=== PATIENT | female | born 1995 | race Caucasian/White ===

== ENCOUNTER 2017-12-09 20:41 | Emergency (ER) | payer MEDICAID, SELFPAY ==
--- NOTE | 2017-12-09 21:58 | RAD ---
FOUR VIEWS OF THE LEFT KNEE: 12/09/17 INDICATION: Fall with left knee pain. FINDINGS: There is mild joint capsular distention. No acute fracture or subluxation is grossly evident. IMPRESSION: Mild joint capsular distention. No acute osseous abnormality. POS: [facility]
== END 2017-12-09 22:02 | disposition home or self-care (01) ==
LOC: SCSER 20:41
DX: S80.02XA Contusion of left knee, initial encounter (principal); Z87.442 Personal history of urinary calculi; W18.11XA Fall from or off toilet without subsequent striking against object, initial encounter

== ENCOUNTER 2018-10-09 18:54 | Emergency (ER) | payer SELFPAY ==
[2018-10-09] MEDS ORDERED: Acetaminophen 325 MG TAB ONE (20:42)
== END 2018-10-09 21:41 | disposition home or self-care (01) ==
LOC: ERS 18:54
DX: J10.1 Influenza due to other identified influenza virus with other respiratory manifestations (principal)
CPT/HCPCS: 87081; 87430; 87804; 99283

== ENCOUNTER 2020-08-16 21:08 | Emergency (ER) | payer SELFPAY ==
[2020-08-16 22:18] LABS: Bacteria/HPF 4+ HPF (None Seen); Bilirubin Negative (Negative); Blood, Urine 2+ (Negative); Clarity Clear (Clear); Glucose, Urine (Dipstick) Normal (Negative); Ketone, Urine Negative (Negative); Leukocyte 250 Leu/uL (Negative); Nitrite 1+ (Negative); Pregnancy Test - Urine (BHCG) Negative (Negative); Pregu Control Background? CLEAR/WHITE (CLR/WHITE); Pregu Control Bar Appear? YES (CONTROL BAR); Protein, Urine (Dipstick) 20 mg/dL (Neg-Trace); RBC/HPF 21-50 HPF (0-3); Specific Gravity 1.029 (1.002-1.036); Specific Gravity, Urine 1.029 (1.002-1.036); Urobilinogen Normal mg/dL (Less than 2); WBC/HPF 21-50 HPF (0-3); pH, Urine 5.5 (5.0-9.0)
== END 2020-08-16 22:34 | disposition home or self-care (01) ==
LOC: ERS 21:08
DX: N39.0 Urinary tract infection, site not specified (principal); N89.8 Other specified noninflammatory disorders of vagina
CPT/HCPCS: 81003; 81015; 81025; 87077; 87086; 87186; 87480; 87491; 87510; 87591; 87660; 99283

== ENCOUNTER 2020-08-19 02:15 | Emergency (ER) | payer SELFPAY ==
[2020-08-19 03:14] LABS: Bacteria/HPF 1+ HPF (None Seen); Bilirubin Negative (Negative); Blood, Urine 2+ (Negative); Clarity Turbid (Clear); Glucose, Urine (Dipstick) Normal (Negative); Ketone, Urine Trace mg/dL (Negative); Leukocyte 500 Leu/uL (Negative); Nitrite Negative (Negative); Protein, Urine (Dipstick) 30 mg/dL (Neg-Trace); RBC/HPF Greater than 50 HPF (0-3); Specific Gravity, Urine 1.023 (1.002-1.036); Squamous Epithelial 21-50 HPF (0-3); Urobilinogen Normal mg/dL (Less than 2); WBC/HPF Greater than 50 HPF (0-3)
== END 2020-08-19 04:40 | disposition home or self-care (01) ==
LOC: ERS 02:15
DX: A60.04 Herpesviral vulvovaginitis (principal); B37.3 Candidiasis of vulva and vagina; A59.01 Trichomonal vulvovaginitis; N39.0 Urinary tract infection, site not specified; Z79.899 Other long term (current) drug therapy
CPT/HCPCS: 81003; 81015; 99283

== ENCOUNTER 2020-08-20 13:20 | Emergency (ER) | payer SELFPAY | END 2020-08-20 14:37 | disposition home or self-care (01) | LOC: ERS 13:20 | DX: B00.82 Herpes simplex myelitis (principal) | CPT/HCPCS: 87252; 99283 ==

== ENCOUNTER 2020-09-07 11:46 | Emergency (ER) | payer SELFPAY ==
[2020-09-07] MEDS ORDERED: Ondansetron PF 4 MG/2 ML Vial ONE (12:17)
[2020-09-07] MEDS ORDERED: Ketorolac Tromethamine 30 MG/ML VIAL ONE (12:17)
[2020-09-07 12:45] LABS: #Eosinphils 0.1 thou/uL (0.0-0.7); #Lymphocytes 1.7 thou/uL (1.20-3.40); #Monocytes 1.4 thou/uL (0.11-0.59); #Neutrophils 11.1 thou/uL (1.40-6.50); %Basophils 0.2 % (0.0-1.0); %Eosinophils 0.5 % (0.0-10.0); %Lymphocytes 11.8 % (21.0-51.0); %Neutrophils 77.4 % (42.0-75.0); Hemoglobin 13.2 g/dL (12.0-16.0); Mean Corpuscular HGB CONC 32.6 g/dL (32.0-36.0); Mean Corpuscular Hemoglobin 29.3 pg (27.0-31.0); Mean Corpuscular Volume 89.8 fL (78.0-98.0); Mean Platelet Volume 6.5 fL (7.4-10.4); Platelet Count 258 thou/uL (130-400); RBC Distribution Width 12.6 % (11.5-14.5); Red Blood Cell (RBC) Count 4.51 mill/uL (4.20-5.40); White Blood Cell (WBC) Count 14.3 thou/uL (4.8-10.8)
[2020-09-07 13:09] LABS: ALT (SGPT) 12 U/L (8-55); AST (SGOT) 12 U/L (5-34); Albumin 3.8 g/dL (3.5-5.0); Alkaline Phosphatase 74 U/L (40-110); Anion Gap 14 mmol/L (10-20); BUN (Urea Nitrogen) 7 mg/dL (7.0-18.7); Bilirubin, Total 0.7 mg/dL (0.2-1.2); Calc. Creatinine Clearance 0 mL/min (70-130); Calcium 8.8 mg/dL (7.8-10.44); Carbon Dioxide 26 mmol/L (22-29); Chloride 101 mmol/L (98-107); Glucose 91 mg/dL (70-105); Potassium 3.7 mmol/L (3.5-5.1); Protein, Total 7.8 g/dL (6.0-8.3); Sodium 137 mmol/L (136-145)
[2020-09-07 13:45] LABS: Bacteria/HPF 4+ HPF (None Seen); Bilirubin Negative (Negative); Blood, Urine 1+ (Negative); Clarity Turbid (Clear); Glucose, Urine (Dipstick) Normal (Negative); Ketone, Urine Trace mg/dL (Negative); Leukocyte Negative Leu/uL (Negative); Nitrite 1+ (Negative); Protein, Urine (Dipstick) 50 mg/dL (Neg-Trace); Specific Gravity, Urine 1.021 (1.002-1.036)
[2020-09-07 13:47] LABS: Pregnancy Test - Urine (BHCG) Negative (Negative); Pregu Control Background? CLEAR/WHITE (CLR/WHITE); Pregu Control Bar Appear? YES (CONTROL BAR); Specific Gravity 1.021 (1.002-1.036)
[2020-09-07 13:50] LABS: BHCG - Serum Negative (NEGATIVE); Pregs Control Background? CLEAR/WHITE (CLR/WHITE); Pregs Control Bar Appear? YES (CONTROL BAR)
[2020-09-07] MEDS ORDERED: cefTRIAXone\\ROCEPHIN 1 GM VIAL ONE (14:03)
--- NOTE | 2020-09-07 14:17 | CT ---
CT Stone Protocol History: Pain Comparison: CT abdomen pelvis 2016 Findings: The lung bases. Clear. No pericardial effusion. Some moderate left perinephric inflammation with thickening drugs fascia and asymmetric enlargement o f the left kidney. There is no significant left-sided hydronephrosis although there is a 1-2 mm stone protocol to be in the distal left ureter at the ureterovesicular junction. No other calculus is seen within the left renal collecting system. No significant calculus of the rig ht renal collecting system. Intrapedicle calcifications inferior pole right kidney. Areas of peripheral scarring right kidney. The liver, spleen, pancreas, adrenal glands have normal noncontrast appearance. The lumbar spine is intact. Visualized thoracic spine is intact. Osseous pelvis is intact. Likely vadim ctive bilateral superficial inguinal lymph nodes. Impression: 1. Obstructive 1 x 2 mm left distal ureteral calculus at the ureterovesicular junction causing left-s ided perinephric stranding and parenchymal congestion. 2. Likely reactive inguinal lymph nodes. 3. Normal appendix.
[2020-09-07] MEDS ORDERED: Iothalamate Meglumine 60% 50 ML VIAL FS ONE (14:48)
[2020-09-07 16:13] LABS: SARS-CoV-2 NAA Rapid Test DETECTED (NotDetected)
--- NOTE | 2020-09-07 16:53 | CON ---
DATE OF CONSULTATION: 09/07/2020 REQUESTING PHYSICIAN: Dr. Spangler in the emergency department. REASON FOR CONSULTATION: Left ureteral stone, urinary tract infection. HISTORY OF PRESENT ILLNESS: Ms. Zavala is a 25-year-old female with extensive past history of stone disease. She is a former patient of Dr. Cain. The patient has required multiple interventions for ureteral stones in the past. The patient has recurrent urinary tract infections as well. She presented to the [facility] with a 3-day history of left-sided flank pain radiating to her left lower quadrant associated with nausea and vomiting. She has had subjective fever and chills at home as well. The patient's pain and nausea were intractable, and she presented to the emergency department. She was tachycardic upon arrival. She was febrile to 100.7. She was given fluids and a gram of IV Rocephin. She is currently afebrile. Her heart rate has come down, but remains elevated. Overall, she is feeling somewhat better, but continues to have left-sided pain and nausea. She has not been able to keep down solid food in 2 to 3 days. She has had only a sip of water this morning. No other complaints. REVIEW OF SYSTEMS: Full 12-point review of systems was performed and is negative other than that mentioned in HPI. PAST MEDICAL HISTORY: 1. Recurrent urinary tract infections. 2. Urolithiasis. 3. Scleroderma. PAST SURGICAL HISTORY: Ureteroscopy with laser lithotripsy, ureteral stent placement. PSYCHIATRIC HISTORY: Anxiety. SOCIAL HISTORY: No alcohol, tobacco, or illicit drugs. She lives at home. ALLERGIES: PENICILLIN. CURRENT HOME MEDICATIONS: None. PHYSICAL EXAMINATION: VITAL SIGNS: Temperature is 98.7, T-max 100.1, blood pressure 124/68, heart rate 100 to 117, oxygen saturation 97% on room air. GENERAL: She is alert and oriented x3. No apparent distress. HEENT: Normocephalic, atraumatic. NECK: Supple. No masses or lymphadenopathy. CARDIOVASCULAR: Regular rate and rhythm. PULMONARY: Breathing unlabored. ABDOMEN: Soft, mild left lower quadrant tenderness to palpation. No rebound or guarding. Mild left CVA tenderness. No right CVA tenderness. No suprapubic tenderness to palpation. EXTREMITIES: Warm and well perfused. No edema. NEUROLOGIC: No focal deficits. PSYCHIATRIC: Normal mood, appropriate affect. LABORATORY DATA: White blood cell count 14.3, hemoglobin 13.2, hematocrit 40.5, and platelets 258. Sodium 137, potassium 3.7, chloride 101, bicarb 26, BUN 7, and creatinine 0.7. Urinalysis; 1+ blood and nitrite, 4+ bacteria. Urine culture from 08/16/2020 demonstrates E coli resistant to fluoroquinolones and Bactrim. RADIOLOGY DATA: Tiny 1 to 2 mm distal left ureteral stone with mild hydroureteronephrosis. ASSESSMENT: A 25-year-old female with urinary tract infection, left ureteral stone. PLAN: I reviewed the natural history and clinical implications of ureteral stones in the setting of urinary tract infection with the patient in detail. The patient has had a fever, and she is tachycardic. She has had intractable pain. She has a high chance of spontaneous passage of the stone. However, given her current symptoms and potentially impending sepsis, I recommended intervention. I discussed options with the patient. After indications/risks, benefits/alternatives/possible outcomes were discussed with the patient in detail, she elects to proceed with left ureteroscopy with basket extraction of stone, left ureteral stent placement, and all indicated procedures. The patient has been COVID tested in the emergency department. Once this is resulted, we will proceed with the aforementioned procedures. ADDENDUM: The patient while in the emergency department had a preoperative COVID test performed. Her COVID test was positive. The patient has responded well to fluids and IV antibiotics. She is no longer febrile. Her heart rate is down into the 90s. She is not currently having any pain secondary to the stone. I discussed this with the emergency room physician and we feel that her low-grade fever and her tachycardia are likely secondary to the COVID rather than this 1 mm minimally obstructing distal ureteral stone. The patient does have nitrite positive urine with 4+ bacteria, but there were many squamous epithelial cells present, so this could represent a contaminant. We will treat her empirically with a 10-day course of antibiotics as an outpatient. She will be given Flomax as well as pain medicine and antiemetics as an outpatient. ER precautions were discussed with the patient and her grandmother. I discussed her positive COVID test and discussed quarantine protocols. I explained this will be further explained by the emergency room physician. She will follow up with me as an outpatient. Job ID: [id number]
== END 2020-09-07 17:35 | disposition home or self-care (01) ==
LOC: ERS 11:46
DX: N13.6 Pyonephrosis (principal); U07.1 COVID-19; R11.0 Nausea
CPT/HCPCS: 0240U; 36415; 74176; 80053; 81003; 81015; 81025; 83690; 84703; 85025; 87040; 87077; 87086; 87186; 96361; 96365; 96375; J0696; J1885; J2405

== ENCOUNTER 2020-12-22 08:24 | Emergency (ER) | payer SELFPAY ==
[2020-12-22] MEDS ORDERED: Fluorescein Opthalmic Strip ONE (09:11)
[2020-12-22] MEDS ORDERED: Proparacaine 0.5% Opth 15 ML BOT ONE (09:12)
[2020-12-22] MEDS ORDERED: Erythromycin Base 0.5% Oint 1 GM TUBE ONE (09:46)
== END 2020-12-22 09:49 | disposition home or self-care (01) ==
LOC: ERS 08:24
DX: H10.9 Unspecified conjunctivitis (principal); Z87.442 Personal history of urinary calculi
CPT/HCPCS: 99283

== ENCOUNTER 2021-08-22 20:35 | Emergency (ER) | payer SELFPAY | END 2021-08-22 22:06 | disposition home or self-care (01) | LOC: ERS 20:35 | DX: H60.91 Unspecified otitis externa, right ear (principal) | CPT/HCPCS: 99282 ==

== ENCOUNTER 2022-05-05 19:37 | Emergency (ER) | payer SELFPAY ==
[2022-05-05 20:21] LABS: #Basophils 0.1 thou/uL (0.0-0.2); #Eosinphils 0.3 thou/uL (0.0-0.7); #Lymphocytes 2.8 thou/uL (1.20-3.40); #Monocytes 0.7 thou/uL (0.11-0.59); #Neutrophils 8.2 thou/uL (1.40-6.50); %Basophils 0.6 % (0.0-1.0); %Eosinophils 2.1 % (0.0-10.0); %Lymphocytes 23.2 % (21.0-51.0); %Neutrophils 68.1 % (42.0-75.0); Hemoglobin 13.8 g/dL (12.0-16.0); Mean Corpuscular HGB CONC 32.3 g/dL (32.0-36.0); Mean Corpuscular Hemoglobin 29.4 pg (27.0-31.0); Mean Platelet Volume 6.3 fL (7.4-10.4); Platelet Count 339 thou/uL (130-400); RBC Distribution Width 11.8 % (11.5-14.5); Red Blood Cell (RBC) Count 4.69 mill/uL (4.20-5.40); White Blood Cell (WBC) Count 12.1 thou/uL (4.8-10.8)
[2022-05-05 20:58] LABS: BHCG - Serum Negative (NEGATIVE); Pregs Control Background? CLEAR/WHITE (CLR/WHITE); Pregs Control Bar Appear? YES (CONTROL BAR)
[2022-05-05 21:03] LABS: ALT (SGPT) 14 U/L (8-55); AST (SGOT) 16 U/L (5-34); Alkaline Phosphatase 74 U/L (40-110); Anion Gap 14 mmol/L (10-20); BUN (Urea Nitrogen) 15 mg/dL (7.0-18.7); Bilirubin, Total 0.3 mg/dL (0.2-1.2); Calc. Creatinine Clearance 0 mL/min (70-130); Calcium 10.1 mg/dL (7.8-10.44); Carbon Dioxide 24 mmol/L (22-29); Chloride 105 mmol/L (98-107); Estimated GFR 118; Globulin 3.7 g/dL (2.4-3.5); Glucose 92 mg/dL (70-105); Potassium 4.1 mmol/L (3.5-5.1); Protein, Total 7.7 g/dL (6.0-8.3); Sodium 139 mmol/L (136-145)
[2022-05-05 21:45] LABS: Bilirubin Negative (Negative); Blood, Urine 1+ (Negative); Clarity Clear (Clear); Glucose, Urine (Dipstick) Normal (Negative); Ketone, Urine Negative (Negative); Leukocyte 75 Leu/uL (Negative); Nitrite Negative (Negative); Protein, Urine (Dipstick) Negative (Neg-Trace); RBC/HPF 0-3 HPF (0-3); Specific Gravity, Urine 1.018 (1.002-1.036); Urobilinogen Normal mg/dL (Less than 2); pH, Urine 5.5 (5.0-9.0)
[2022-05-05 21:46] LABS: Bacteria/HPF 1+ HPF (None Seen)
[2022-05-05] MEDS ORDERED: Ondansetron ODT 4 MG TAB ONE (21:47)
[2022-05-05] MEDS ORDERED: Ketorolac Tromethamine 30 MG/ML VIAL ONE ×2 (21:47→21:53)
== END 2022-05-05 22:09 | disposition home or self-care (01) ==
LOC: ERS 19:37
DX: N39.0 Urinary tract infection, site not specified (principal)
CPT/HCPCS: 36415; 74176; 80053; 81003; 81015; 84703; 85025; 87077; 87086; 87186; 96372; J1885; Q0162

== ENCOUNTER 2022-10-02 19:29 | Emergency (ER) | payer SELFPAY ==
[2022-10-02] MEDS ORDERED: Dexameth. Sod Phosp. 10 MG/ML (CHEMO USE ONLY) ONE (21:11)
[2022-10-02] MEDS ORDERED: Ketorolac Tromethamine 30 MG/ML VIAL ONE (21:15)
== END 2022-10-02 21:47 | disposition home or self-care (01) ==
LOC: ERS 19:29
DX: J02.0 Streptococcal pharyngitis (principal)
CPT/HCPCS: 87430; 96372; 99283; J1100; J1885

== ENCOUNTER 2024-06-24 22:16 | Emergency (ER) | payer SELFPAY ==
[2024-06-24] MEDS ORDERED: Dexamethasone 10 MG/ML VIAL ONE (23:50)
== END 2024-06-25 00:02 | disposition home or self-care (01) ==
LOC: ERS 22:16
DX: J02.9 Acute pharyngitis, unspecified (principal)
CPT/HCPCS: 87081; 87430; 99282; J1100